=== PATIENT | female | born 1985 | race Caucasian/White ===

== ENCOUNTER 2018-03-03 15:23 | Inpatient (IN) | payer OTHER ==
[~2018-03-03] VITALS: Ht 162.6 cm; Wt 75.9 kg
[2018-03-03 15:24] VITALS: BP 114/56
[2018-03-03] MEDS ORDERED: ASPIRIN ADULT L81 M1 PO (15:44)
[2018-03-03] MEDS ORDERED: ATIVAN1 MG PO (15:44)
[2018-03-03] MEDS ORDERED: ARTIFICIAL TEA1 EACH OP (15:44)
[2018-03-03] MEDS ORDERED: DOCUSATE SODIU100 M3 PO (15:45)
[2018-03-03] MEDS ORDERED: BACLOFEN20 M1 PO (15:45)
[2018-03-03] MEDS ORDERED: DULCOLAX10 M1 R (15:46)
[2018-03-03] MEDS ORDERED: LEXAPRO20 MG PO (15:47)
[2018-03-03] MEDS ORDERED: CONSTULOSE10 GM/151 PO (15:48)
[2018-03-03] MEDS ORDERED: NATURE'S BLEND M3 MG PO (15:49)
[2018-03-03] MEDS ORDERED: LYRICA300 MG PO (15:49)
[2018-03-03] MEDS ORDERED: LOVENOX30 MG/0.3 SC (15:49)
[2018-03-03] MEDS ORDERED: MIRALAX17 GM PO (15:50)
[2018-03-03] MEDS ORDERED: MULTIVITAMINS1 EAC5 PO (15:50)
[2018-03-03] MEDS ORDERED: OXYCODONE HCL5 M1 PO (15:50)
[2018-03-03] MEDS ORDERED: ZYPREXA20 M1 PO (15:50)
[2018-03-03] MEDS ORDERED: SENOKOT8.6 MG PO (15:51)
[2018-03-03] MEDS ORDERED: SANTYL30 GM T (15:51)
[2018-03-03] MEDS ORDERED: Zofran4 MG SL (15:52)
[2018-03-03] MEDS ORDERED: TYLENOL325 M2 PO (15:52)
[2018-03-03 16:00] VITALS: BP 86/47
[2018-03-03 16:13] LABS: BASO % 0.2 % (0.0-1.0); EOS % 0.1 % (1.0-4.0); HEMOGLOBIN 12.1 g/dl (12.0-16.0); LYMPH % 6.4 % (27.0-41.0); MEAN CELL VOLUME 92.3 fl (81.0-99.0); MEAN CORPUSCULAR HGB 30.2 pg (27.0-31.0); MEAN CORPUSCULAR HGB CONC 32.7 g/dl (33.0-37.0); MEAN PLATELET VOLUME 10.4 fl (9.6-12.3); MONO # 0.9 10*3/uL (0.1-1.0); MONO % 5.7 % (3.0-9.0); NEUT % 87.3 % (47.0-73.0); PLATELET COUNT AUTOMATED 262 10*3/uL (130-400); RED BLOOD COUNT 4.01 10*6/uL (4.10-5.10); RED CELL DISTRI WIDTH 13.7 % (0-14.5); WHITE BLOOD COUNT 16.1 10*3/uL (4.8-10.8)
[2018-03-03 16:18] LABS: BILIRUBIN NEGATIVE (NEGATIVE); BLOOD 2+ (NEGATIVE); CLARITY SL CLOUDY (CLEAR); COLOR YELLOW (YELLOW); GLUCOSE NEGATIVE (NEGATIVE); KETONE NEGATIVE (NEGATIVE); LEUKO ESTERASE 3+ (NEGATIVE); NITRITE POSITIVE (NEGATIVE); SPECIFIC GRAVITY <= 1.005 (1.005-1.030); UROBILINOGEN 0.2 E.U./dl (0.2-1.0)
[2018-03-03 16:24] LABS: ACT PARTIAL THROMBO TIME 24.5 SECONDS (20.8-31.5)
[2018-03-03 16:29] LABS: BACTERIA 4+; CALCIUM OXALATE CRYSTALS 1+
[2018-03-03 16:30] LABS: ALKALINE PHOSPHATASE 131 U/L (45-117); BUN 18 mg/dl (7-24); CHLORIDE 105 mmol/L (98-107); CREATININE 0.63 mg/dL (0.55-1.02); LIPASE 138 U/L (73-393); SGOT/AST 44 IU/L (3-35); SGPT/ALT 63 U/L (12-78); SODIUM 138 mmol/L (136-145); TOTAL PROTEIN 6.9 gm/dL (6.4-8.2)
[2018-03-03 16:32] LABS: WBC 21-30 wbc/hpf (0-5)
[2018-03-03 16:33] LABS: TROPONIN I < 0.015 ng/ml (<0.045)
[2018-03-03 18:16] VITALS: BP 106/56
[2018-03-03] MEDS ORDERED: OXYCODONE HCL10 M1 PO (20:20)
[2018-03-03] MEDS ORDERED: MILK OF MA400 MG/52 PO (20:28)
[2018-03-04] VITALS: BP 106/53
[2018-03-04 07:11] LABS: BASO % 0.2 % (0.0-1.0); EOS # 0.2 10*3/uL (0.0-0.4); HEMOGLOBIN 11.6 g/dl (12.0-16.0); LYMPH % 11.5 % (27.0-41.0); MEAN CELL VOLUME 94.5 fl (81.0-99.0); MEAN CORPUSCULAR HGB 30.4 pg (27.0-31.0); MEAN CORPUSCULAR HGB CONC 32.2 g/dl (33.0-37.0); MEAN PLATELET VOLUME 10.9 fl (9.6-12.3); MONO # 0.6 10*3/uL (0.1-1.0); NEUT # 7.1 10*3/uL (2.3-7.9); NEUT % 78.9 % (47.0-73.0); PLATELET COUNT AUTOMATED 198 10*3/uL (130-400); RED BLOOD COUNT 3.81 10*6/uL (4.10-5.10); RED CELL DISTRI WIDTH 13.9 % (0-14.5)
[2018-03-04 07:29] LABS: ALBUMIN 2.6 gm/dl (3.1-4.5); BUN 16 mg/dl (7-24); CHLORIDE 111 mmol/L (98-107); CHOLESTEROL 189 mg/dL (<200); HDL CHOLESTEROL 67 mg/dl (40-60); LDL CHOLESTEROL 109 mg/dL (9-159); PHOSPHOROUS 5.3 mg/dL (2.5-4.9); POTASSIUM 3.8 mmol/L (3.5-5.1); SGOT/AST 35 IU/L (3-35); SGPT/ALT 56 U/L (12-78); SODIUM 143 mmol/L (136-145); TOTAL PROTEIN 6.4 gm/dL (6.4-8.2); TRIGLYCERIDES 65 mg/dl (<150); VLDL CHOLESTEROL 13 mg/dL (6-40)
[2018-03-04 07:38] LABS: ALKALINE PHOSPHATASE 120 U/L (45-117); CREATININE 0.65 mg/dL (0.55-1.02); FREE T4 0.83 ng/dl (0.76-1.46); THYROID STIM HORMONE (HS) 0.842 uIU/ml (0.358-4.75)
[2018-03-04 07:39] LABS: ACT PARTIAL THROMBO TIME 27.5 SECONDS (20.8-31.5)
[2018-03-04 08:00] VITALS: BP 103/53
[2018-03-04 08:29] LABS: VITAMIN D, 25-HYDROXY 22.5 ng/mL (30-100)
[2018-03-04 12:00] VITALS: BP 100/51
[2018-03-04 16:00] VITALS: BP 110/60
[2018-03-04 20:00] VITALS: BP 116/56
[2018-03-05 01:09] VITALS: BP 103/53
[2018-03-05 06:25] LABS: BASO % 0.3 % (0.0-1.0); EOS # 0.2 10*3/uL (0.0-0.4); EOS % 3.1 % (1.0-4.0); HEMATOCRIT 37.4 % (37.0-47.0); HEMOGLOBIN 11.9 g/dl (12.0-16.0); LYMPH % 14.7 % (27.0-41.0); MEAN CELL VOLUME 94.2 fl (81.0-99.0); MEAN CORPUSCULAR HGB CONC 31.8 g/dl (33.0-37.0); MEAN PLATELET VOLUME 10.7 fl (9.6-12.3); MONO # 0.7 10*3/uL (0.1-1.0); MONO % 10.6 % (3.0-9.0); NEUT # 4.7 10*3/uL (2.3-7.9); NEUT % 70.7 % (47.0-73.0); PLATELET COUNT AUTOMATED 216 10*3/uL (130-400); RED BLOOD COUNT 3.97 10*6/uL (4.10-5.10); RED CELL DISTRI WIDTH 13.7 % (0-14.5); WHITE BLOOD COUNT 6.7 10*3/uL (4.8-10.8)
[2018-03-05 08:00] VITALS: BP 110/72
[2018-03-05 08:10] LABS: BILIRUBIN NEGATIVE (NEGATIVE); BLOOD 3+ (NEGATIVE); CLARITY CLEAR (CLEAR); COLOR YELLOW (YELLOW); GLUCOSE NEGATIVE (NEGATIVE); KETONE NEGATIVE (NEGATIVE); LEUKO ESTERASE 1+ (NEGATIVE); NITRITE NEGATIVE (NEGATIVE); PH 6.5 (5.0-9.0); SPECIFIC GRAVITY <= 1.005 (1.005-1.030); UROBILINOGEN 0.2 E.U./dl (0.2-1.0)
[2018-03-05 08:22] LABS: BACTERIA 1+; RBC TNTC rbc/hpf (0-2); WBC 21-30 wbc/hpf (0-5)
[2018-03-05 12:00] VITALS: BP 121/55
[2018-03-05 16:00] VITALS: BP 101/53
[2018-03-05 20:00] VITALS: BP 111/50
[2018-03-06] VITALS: BP 114/56
[2018-03-06 08:00] VITALS: BP 147/61
[2018-03-06 12:00] VITALS: BP 129/62
[2018-03-06] MEDS ORDERED: LEVAQUIN750 M1 PO (12:47)
== END 2018-03-06 15:54 | DRG 871 ==
LOC: ED 15:23 → EDHOLD 17:39 → 4E 17:39
PROVIDERS: Family Medicine; Internal Medicine Hospice and Palliative Medicine; Physician Assistant
DX: A41.9 Sepsis, unspecified organism (principal); E43 Unspecified severe protein-calorie malnutrition; J18.9 Pneumonia, unspecified organism; L89.154 Pressure ulcer of sacral region, stage 4; E87.8 Other disorders of electrolyte and fluid balance, not elsewhere classified; G82.20 Paraplegia, unspecified; N39.0 Urinary tract infection, site not specified; R65.20 Severe sepsis without septic shock; G62.9 Polyneuropathy, unspecified; R73.9 Hyperglycemia, unspecified; R74.0 Nonspecific elevation of levels of transaminase and lactic acid dehydrogenase [LDH]; Z71.6 Tobacco abuse counseling; Z72.0 Tobacco use; F32.9 Major depressive disorder, single episode, unspecified; F41.1 Generalized anxiety disorder; G89.4 Chronic pain syndrome; R31.9 Hematuria, unspecified; E83.41 Hypermagnesemia; D64.9 Anemia, unspecified; E83.39 Other disorders of phosphorus metabolism; B96.20 Unspecified Escherichia coli [E. coli] as the cause of diseases classified elsewhere; Y95 Nosocomial condition; Y83.8 Other surgical procedures as the cause of abnormal reaction of the patient, or of later complication, without mention of misadventure at the time of the procedure; R14.0 Abdominal distension (gaseous); Z88.8 Allergy status to other drugs, medicaments and biological substances; Z79.899 Other long term (current) drug therapy; Z79.82 Long term (current) use of aspirin; Z84.89 Family history of other specified conditions; Z68.28 Body mass index [BMI] 28.0-28.9, adult; Y92.89 Other specified places as the place of occurrence of the external cause

== ENCOUNTER 2018-03-28 12:58 | Emergency (ER) | payer OTHER ==
[~2018-03-28] VITALS: Wt 68.0 kg
[~2018-03-28 12:58] MED LIST: ARTIFICIAL TEA1 EACH OP; ASPIRIN ADULT L81 M1 PO; ATIVAN1 MG PO; BACLOFEN20 M1 PO; CONSTULOSE10 GM/151 PO; DOCUSATE SODIU100 M3 PO; DULCOLAX10 M1 R; LEVAQUIN750 M1 PO; LEXAPRO20 MG PO; LOVENOX30 MG/0.3 SC; LYRICA300 MG PO; MILK OF MA400 MG/52 PO; MIRALAX17 GM PO; MULTIVITAMINS1 EAC5 PO; NATURE'S BLEND M3 MG PO; OXYCODONE HCL10 M1 PO; OXYCODONE HCL5 M1 PO; SANTYL30 GM T; SENOKOT8.6 MG PO; TYLENOL325 M2 PO; ZYPREXA20 M1 PO; Zofran4 MG SL
[2018-03-28 13:34] LABS: HEMATOCRIT 43.9 % (37.0-47.0); HEMOGLOBIN 14.8 g/dl (12.0-16.0); MEAN CELL VOLUME 89.4 fl (81.0-99.0); MEAN CORPUSCULAR HGB 30.1 pg (27.0-31.0); MEAN CORPUSCULAR HGB CONC 33.7 g/dl (33.0-37.0); PLATELET COUNT AUTOMATED 191 10*3/uL (130-400); RED BLOOD COUNT 4.91 10*6/uL (4.10-5.10); RED CELL DISTRI WIDTH 13.7 % (0-14.5); WHITE BLOOD COUNT 20.3 10*3/uL (4.8-10.8)
[2018-03-28 13:39] LABS: BILIRUBIN 1+ (NEGATIVE); BLOOD NEGATIVE (NEGATIVE); CLARITY TURBID (CLEAR); COLOR YELLOW (YELLOW); GLUCOSE NEGATIVE (NEGATIVE); KETONE NEGATIVE (NEGATIVE); LEUKO ESTERASE 2+ (NEGATIVE); NITRITE POSITIVE (NEGATIVE); PH >= 9.0 (5.0-9.0); SPECIFIC GRAVITY <= 1.005 (1.005-1.030)
[2018-03-28 13:43] LABS: ACT PARTIAL THROMBO TIME 30.5 SECONDS (20.8-31.5); INTERNATIONAL NORM RATIO 1.1 (2.0-3.5)
[2018-03-28 13:45] LABS: URINE AMPHETAMINES < 1000 (1000ng/ml); URINE BARBITURATES < 200 (200ng/ml); URINE BENZODIAZEPINES < 200 (200ng/ml); URINE CANNABINOIDS (THC) > 50 (50ng/ml); URINE COCAINE > 300 (300ng/ml); URINE METHADONE < 300 (300ng/ml); URINE OPIATES > 300 (300ng/ml); URINE PHENCYCLIDINE < 25 (25ng/ml)
[2018-03-28 13:52] LABS: PLATELET SUFFICIENCY NORMAL (NORMAL); TOTAL CELLS COUNTED 100 #CELLS
[2018-03-28 13:53] LABS: ALBUMIN 2.9 gm/dl (3.1-4.5); ALKALINE PHOSPHATASE 172 U/L (45-117); BUN 44 mg/dl (7-24); CHLORIDE 103 mmol/L (98-107); POTASSIUM 5.9 mmol/L (3.5-5.1); SGOT/AST 47 IU/L (3-35); SGPT/ALT 58 U/L (12-78); SODIUM 134 mmol/L (136-145); TOTAL PROTEIN 7.7 gm/dL (6.4-8.2)
[2018-03-28 13:54] LABS: TROPONIN I < 0.015 ng/ml (<0.045)
[2018-03-28 13:59] LABS: BACTERIA 3+; RBC 51-100 rbc/hpf (0-2); TRIP PHOS CRYSTALS 3+; WBC 21-30 wbc/hpf (0-5)
[2018-03-28 14:16] LABS: ABG BASE EXCESS -4.7 mmol/L (-2.0-2.0); ABG HCO3 16.3 mmol/l (22-26); ABG O2 SATURATION 95.8 % (95-97); ARTERIAL BLOOD GAS PCO2 22.8 mmHg (35-45); ARTERIAL BLOOD GAS PH 7.474 (7.35-7.45); ARTERIAL BLOOD GAS PO2 79.3 mmHg (80-90)
== END 2018-03-28 17:10 | disposition short-term general hospital (02) ==
LOC: ED 12:58
PROVIDERS: Emergency Medicine
DX: A41.9 Sepsis, unspecified organism (principal); J18.8 Other pneumonia, unspecified organism; R65.20 Severe sepsis without septic shock; N17.9 Acute kidney failure, unspecified; F14.10 Cocaine abuse, uncomplicated; E87.5 Hyperkalemia; F19.10 Other psychoactive substance abuse, uncomplicated; F17.200 Nicotine dependence, unspecified, uncomplicated; F32.9 Major depressive disorder, single episode, unspecified; E78.5 Hyperlipidemia, unspecified; Z79.899 Other long term (current) drug therapy; Z79.82 Long term (current) use of aspirin; Z88.8 Allergy status to other drugs, medicaments and biological substances

== ENCOUNTER 2018-04-06 22:56 | Emergency (ER) | payer OTHER ==
[~2018-04-06] VITALS: Ht 154.9 cm; Wt 68.0 kg
[2018-04-06 23:27] LABS: URINE AMPHETAMINES < 1000 (1000ng/ml); URINE BARBITURATES < 200 (200ng/ml); URINE BENZODIAZEPINES < 200 (200ng/ml); URINE CANNABINOIDS (THC) > 50 (50ng/ml); URINE COCAINE > 300 (300ng/ml); URINE METHADONE < 300 (300ng/ml); URINE OPIATES > 300 (300ng/ml)
[2018-04-06 23:31] LABS: URINE PHENCYCLIDINE < 25 (25ng/ml)
[2018-04-06 23:38] LABS: HEMATOCRIT 41.2 % (37.0-47.0); HEMOGLOBIN 13.6 g/dl (12.0-16.0); MEAN CELL VOLUME 90.2 fl (81.0-99.0); MEAN CORPUSCULAR HGB 29.8 pg (27.0-31.0); MEAN PLATELET VOLUME 11.6 fl (9.6-12.3); PLATELET COUNT AUTOMATED 326 10*3/uL (130-400); RED BLOOD COUNT 4.57 10*6/uL (4.10-5.10); RED CELL DISTRI WIDTH 14.7 % (0-14.5)
[2018-04-06 23:55] LABS: ALBUMIN 3.2 gm/dl (3.1-4.5); ALKALINE PHOSPHATASE 201 U/L (45-117); BUN 18 mg/dl (7-24); CHLORIDE 105 mmol/L (98-107); POTASSIUM 4.1 mmol/L (3.5-5.1); SGOT/AST 54 IU/L (3-35); SGPT/ALT 48 U/L (12-78); SODIUM 138 mmol/L (136-145); TOTAL PROTEIN 8.5 gm/dL (6.4-8.2)
[2018-04-06 23:56] LABS: ACETAMINOPHEN (TYLENOL) < 2.0 ug/ml (10-30); ETHYL ALCOHOL < 3.0 mg/dl (<3); TROPONIN I < 0.015 ng/ml (<0.045)
[2018-04-07 00:03] LABS: TOTAL CELLS COUNTED 100 #CELLS
[2018-04-07 00:04] LABS: PLATELET SUFFICIENCY NORMAL (NORMAL); POLYCHROMASIA SLIGHT
[2018-04-07 00:55] LABS: BILIRUBIN NEGATIVE (NEGATIVE); BLOOD 2+ (NEGATIVE); CLARITY CLEAR (CLEAR); COLOR YELLOW (YELLOW); GLUCOSE NEGATIVE (NEGATIVE); KETONE NEGATIVE (NEGATIVE); LEUKO ESTERASE 1+ (NEGATIVE); NITRITE NEGATIVE (NEGATIVE); UROBILINOGEN 0.2 E.U./dl (0.2-1.0)
[2018-04-07 01:09] LABS: BACTERIA 1+; EPITHELIAL CELLS 0-2; RBC 21-30 rbc/hpf (0-2)
== END 2018-04-07 03:50 | disposition left against medical advice (07) ==
LOC: ED 22:56
PROVIDERS: Student in an Organized Health Care Education/Training Program
DX: T40.5X1A Poisoning by cocaine, accidental (unintentional), initial encounter (principal); A41.9 Sepsis, unspecified organism; R65.20 Severe sepsis without septic shock; G89.4 Chronic pain syndrome; E78.00 Pure hypercholesterolemia, unspecified; G62.9 Polyneuropathy, unspecified; E66.3 Overweight; F17.200 Nicotine dependence, unspecified, uncomplicated; Z68.29 Body mass index [BMI] 29.0-29.9, adult; Z98.890 Other specified postprocedural states; Z79.899 Other long term (current) drug therapy; Z88.6 Allergy status to analgesic agent; Z79.82 Long term (current) use of aspirin; Y92.9 Unspecified place or not applicable

== ENCOUNTER 2018-06-23 14:33 | Emergency (ER) | payer OTHER ==
[~2018-06-23] VITALS: Ht 162.5 cm; Wt 77.1 kg
[~2018-06-23 14:33] MED LIST changes: +ATIVAN0.5 MG PO; +DOXYCYCLINE100 M3 PO; +Ipratropium Brom3 ML INH; +LEVOFLOXACIN500 MG PO; +LIDODERM1 EACH T; +MILK OF MA400 MG/5 M PO; +MUCINEX ER600 MG PO; +NEURONTIN300 MG PO; +OLANZAPINE20 M2 PO; +VITAMIN C500 M8 PO
[2018-06-23 16:00] LABS: CREATININE 1.42 mg/dL (0.55-1.02); POTASSIUM 3.8 mmol/L (3.5-5.1); TOTAL PROTEIN 6.8 gm/dL (6.4-8.2)
[2018-06-23 16:05] LABS: TROPONIN I < 0.015 ng/ml (<0.045)
[2018-06-23 17:15] LABS: HEMOGLOBIN 11.8 g/dl (12.0-16.0); MEAN CELL VOLUME 96.5 fl (81.0-99.0); MEAN CORPUSCULAR HGB 31.6 pg (27.0-31.0); MEAN CORPUSCULAR HGB CONC 32.8 g/dl (33.0-37.0); MEAN PLATELET VOLUME 9.6 fl (9.6-12.3); PLATELET COUNT AUTOMATED 201 10*3/uL (130-400); RED BLOOD COUNT 3.73 10*6/uL (4.10-5.10); RED CELL DISTRI WIDTH 15.3 % (0-14.5); WHITE BLOOD COUNT 4.8 10*3/uL (4.8-10.8)
[2018-06-23 17:36] LABS: BASOPHILS 1 % (0-1); TOTAL CELLS COUNTED 100 #CELLS
[2018-06-23 17:38] LABS: PLATELET SUFFICIENCY NORMAL (NORMAL); POLYCHROMASIA SLIGHT
[2018-08-06] MEDS ORDERED: NORCO 5-325 TA1 EACH PO (19:01)
== END 2018-06-23 19:20 | disposition short-term general hospital (02) ==
LOC: ED 14:33
PROVIDERS: Physician Assistant
DX: T83.038A Leakage of other urinary catheter, initial encounter (principal); A41.9 Sepsis, unspecified organism; R65.20 Severe sepsis without septic shock; N39.0 Urinary tract infection, site not specified; R11.2 Nausea with vomiting, unspecified; F17.200 Nicotine dependence, unspecified, uncomplicated; Z79.899 Other long term (current) drug therapy; Z88.6 Allergy status to analgesic agent

== ENCOUNTER → 2018-07-27 | Outpatient (CLI) | payer OTHER ==
[~2018-07-27] MED LIST changes: +NORCO 5-325 TA1 EACH PO
== END | disposition home or self-care (01) ==
LOC: US 07-15 12:30
DX: R33.8 Other retention of urine (principal)